=== PATIENT | female | born 1945 | race Caucasian/White ===

== ENCOUNTER 2017-02-22 18:29 | Inpatient (IN) ==
[2017-02-22] MEDS ORDERED: ALBUTEROL/IPRATROPIUM 2.5mg-0.5mg/3ml NEB IPPB ONE ×2 (18:43→18:58)
[2017-02-22] MEDS: METHYLPREDNISOLONE SOD SUCC 125mg/2ml INJECTION IVP ONE ×2 (18:51→19:00)
--- NOTE | 2017-02-22 18:53 | Emergency Department Report ---
SOB HPI - General Chief Complaint: Shortness of Breath/Dyspnea Stated Complaint: Trouble breathing Time Seen by Provider: 02/22/17 18:40 Source: patient, family Mode of arrival: ambulatory Limitations: no limitations - History of Present Illness Patient has a long-standing history of COPD, and began having exacerbation of her difficulty breathing several days ago. Patient is from [place], saw her doctor on , and was started on a prednisone taper pack, starting at 50 mg to be tapered over one week. Patient also was started on Cefdinir. At home the patient uses primarily albuterol nebulized and MDI form, and has her medications with her. Today the patient's symptoms became worse as she was exposed to the heat, humidity, and allergens. Patient has not been running any fevers, and this is not unusual for her COPD. MD Complaint: shortness of breath, cough Exacerbating factors: exertion Known history of: COPD Associated symptoms: denies other symptoms - Related Data Home Medications Medication Instructions Recorded Confirmed Amlodipine Besylate [Norvasc] 5 mg PO DAILY 02/22/17 02/22/17 Atorvastatin 1 tab PO HS 02/22/17 02/22/17 Calcium 600 + D [Caltrate + D] 1 tab PO DAILY 02/22/17 02/22/17 Cefdinir 300 mg PO DAILY 02/22/17 02/22/17 Cholecalciferol (Vitamin D3) 1,000 unit PO DAILY 02/22/17 02/22/17 [Vitamin D3] Formoterol Fumarate [Perforomist] 20 mcg IH DAILY 02/22/17 02/22/17 Levothyroxine 1 tab PO DAILY 02/22/17 02/22/17 Omeprazole 40 mg PO DAILY 02/22/17 02/22/17 predniSONE [Prednisone] 10 mg PO TAPERQD 02/22/17 02/22/17 Allergies Allergy/AdvReac Type Severity Reaction Status Date / Time codeine Allergy Unknown Nausea and Verified 02/22/17 18:43 Vomiting Penicillins Allergy Unknown Verified 02/22/17 18:43 Review of Systems All systems: reviewed and negative except as stated PFSH Patient Stated Medical History Transient Ischemic Attacks ( Yes TIA) Cataracts Yes Other HEENT Yes: WEARS GLASSES Angina Yes Coronary Artery Disease Yes Hypertension Yes Myocardial Infarction Yes Bronchitis Yes Chronic Obstructive Pulmonary Yes Disease (COPD) Gastroesophageal Reflux Yes Disease COPD CAD - Social History Smoking status: Never smoker Physical Exam - Limitations Limitations: no limitations - General General appearance: alert (patient appears in moderate respiratory distress) - Normal Exams: Head:: Normocephalic without trauma Eyes:: Pupils are PERRLA w/ EOMI, No scleral icterus, irritation, or foreign bodies noted ENMT:: No facial trauma, nasal exudates, pharyngeal erythema, or exudates are noted Neck:: Full range of motion, without adenopathy, JVD, bruits or thyromegaly Cardiovascular:: Regular rate and rhythm, without murmur or gallop, Pulses 2+ all extremities, capillary refill, <2 seconds all extremities Abdomen:: Bowel sounds positive, soft, non-tender, non-distended, no hepatosplenomegaly, masses or bruits noted Lymphatic:: No lymphadenopathy, or lymphedema noted Musculoskeletal:: No tenderness, or deformity noted, good range of motion, all extremities Integumentary:: No rashes, hives, or bruising noted, hair and nails, without abnormality Neurological:: Patient is alert, and oriented, cranial nerves, motor/sensory/ cerebellar, exams w/o gross deficits, to observation Psychiatric:: Patient exhibits, appropriate attention, emotion and affect - Chest Chest inspection: Present: normal inspection, symmetric chest wall rise - Respiratory Respiratory exam: Present: respiratory distress (bilateral tight wheezes, with poor air movement), wheezes, accessory muscle use, prolonged expiratory phase. Absent: normal lung sounds bilaterally Course Vital Signs Temperature 98.3 F 02/22/17 18:35 Pulse Rate 117 H 02/22/17 18:35 Respiratory Rate 26 H 02/22/17 18:35 Blood Pressure 141/84 H 02/22/17 18:35 Pulse Oximetry 93 02/22/17 18:35 Temperature 98.3 F 02/22/17 18:35 Pulse Rate 126 H 02/22/17 20:15 Respiratory Rate 30 H 02/22/17 20:15 Blood Pressure 133/59 02/22/17 20:15 Pulse Oximetry 92 02/22/17 20:15 Shortness of Breath/Dyspnea - [facility] Narrative Medical decision making narrative: Patient given sign Medrol 125 mg IV, and 2 DuoNeb nebs [id number] - after initial treatments patient showed little improvement initially, became quite anxious, and was having worsening difficulty breathing. Patient given 5 mg Valium IV, 2 additional DuoNeb nebs by IPAP, and seem to improve. Pt also given 1lns bolus. Chest x-ray - chronic lung disease only CBC - n CMP - n ABG -ordered, however when results came back sample was obviously a venous sample. Due to discomfort in the first draw, patient declines further ABG at this time After a total of 6 treatments, and the above medications, patient is significantly improved, she was able to get off of BiPAP, but is unable to maintain her O2 saturation above 86% on room air. On 2-4 L nasal cannula the patient has good oxygenation and is feeling much better. When the patient got up to go to the bathroom however she became significantly winded with only a few steps. Case is discussed with Dr. Maury Lzao will admit the patient for COPD exacerbation - Lab Data Result diagrams: 02/22/17 19:19 02/22/17 19:19 Lab Results 02/22/17 02/22/17 02/22/17 Range/Units 19:19 19:19 19:55 WBC 11.1 H (4.5-11.0) T/MM3 RBC 4.15 (4.00-5.20) M/MM3 Hgb 12.2 (12-16) GM/DL Hct 37.4 (36-46) % MCV 90.1 (80-100) UM3 MCH 29.4 (26-34) UUG MCHC 32.6 (31-37) GM/DL RDW Std Deviation 40.8 (36.9-50.2) FL Plt Count 370 (130-400) T/MM3 MPV 8.9 L (9.4-12.4) UM3 Immature Gran % (Auto) 0.2 (0.0-0.5) % Neut % (Auto) 52.9 (33-66) % Lymph % (Auto) 33.0 (23-45) % Hudspeth % (Auto) 13.4 H (0-9.0) % Eos % (Auto) 0.4 (0-4) % Baso % (Auto) 0.1 (0-2) % Neut # 5.9 (1.8-7.7) T/MM3 Lymph # 3.7 (1-4.8) T/MM3 Hudspeth # 1.5 H (0-0.8) T/MM3 Eos # 0.0 (0-0.5) T/MM3 Baso # 0.0 (0-0.2) T/MM3 Abs Immat Gran (auto) 0.02 (0.00-0.03) T/MM3 Specimen Type Cancelled Puncture Site Cancelled ABG pH Cancelled ABG pCO2 Cancelled ABG pO2 Cancelled ABG HCO3 Cancelled ABG Total CO2 Cancelled ABG O2 Saturation Cancelled ABG Base Excess Cancelled Jass Test Cancelled VBG pH (7.31-7.41) VBG pCO2 (40-52) MMHG VBG pO2 (40-52) MMHG VBG HCO3 (22-26) MEQ/L VBG Total CO2 MEQ/L VBG O2 Saturation % VBG Base Excess (-2.0-2.0) MMOL/L O2 Delivery Method Cancelled Vent Rate Cancelled FiO2 % Cancelled FiO2 (liters per min) Cancelled PEEP Cancelled Inspiratory Pressure Cancelled Pressure Support Cancelled Turbidity < 20 (0-20) Sodium 140 (134-144) MEQ/L Potassium 3.6 (3.6-5) MEQ/L Chloride 100 (98-107) MEQ/L Carbon Dioxide 29 (22-30) MEQ/L Anion Gap 11 (5-15) MEQ/L BUN 15.0 (7-17) MG/DL Creatinine 0.9 (0.7-1.2) MG/DL GFR Calculation 62 BUN/Creatinine Ratio 17 (6-26) RATIO Glucose 105 (65-110) MG/DL Calculated Osmolality 270 (261-280) MOSM/KG Calcium 9.7 (8.4-10.2) MG/DL Total Bilirubin 0.40 (0.20-1.30) MG/DL Conjugated Bilirubin 0.00 (0.00-0.30) MG/DL Unconjugated Bilirubin 0.20 (0.00-11.10) MG/DL Icterus Index < 2 (0-7) AST 27 (14-36) U/L ALT 41 (9-52) U/L Alkaline Phosphatase 114 (38-126) U/L Total Protein 6.7 (6.3-8.2) G/DL Albumin 4.2 (3.5-5.0) G/DL Globulin 2.5 (2.4-3.6) G/DL Albumin/Globulin Ratio 1.7 (1.1-2.2) RATIO Specimen Hemolysis < 15 (0-25) // Range/Units 19:55 WBC (4.5-11.0) T/MM3 RBC (4.00-5.20) M/MM3 Hgb (12-16) GM/DL Hct (36-46) % MCV (80-100) UM3 MCH (26-34) UUG MCHC (31-37) GM/DL RDW Std Deviation (36.9-50.2) FL Plt Count (130-400) T/MM3 MPV (9.4-12.4) UM3 Immature Gran % (Auto) (0.0-0.5) % Neut % (Auto) (33-66) % Lymph % (Auto) (23-45) % [place]ud[place] % (Auto) (0-9.0) % Eos % (Auto) (0-4) % Baso % (Auto) (0-2) % Neut # (1.8-7.7) T/MM3 Lymph # (1-4.8) T/MM3 Hudspeth # (0-0.8) T/MM3 Eos # (0-0.5) T/MM3 Baso # (0-0.2) T/MM3 Abs Immat Gran (auto) (0.00-0.03) T/MM3 Specimen Type Puncture Site ABG pH ABG pCO2 ABG pO2 ABG HCO3 ABG Total CO2 ABG O2 Saturation ABG Base Excess Jass Test VBG pH 7.440 H (7.31-7.41) VBG pCO2 49 (40-52) MMHG VBG pO2 32 L (40-52) MMHG VBG HCO3 33 H (22-26) MEQ/L VBG Total CO2 34.8 MEQ/L VBG O2 Saturation 65.0 % VBG Base Excess 7.9 H (-2.0-2.0) MMOL/L O2 Delivery Method Bpap, % Vent Rate FiO2 % 21 FiO2 (liters per min) PEEP Inspiratory Pressure Pressure Support Turbidity (0-20) Sodium (134-144) MEQ/L Potassium (3.6-5) MEQ/L Chloride (98-107) MEQ/L Carbon Dioxide (22-30) MEQ/L Anion Gap (5-15) MEQ/L BUN (7-17) MG/DL Creatinine (0.7-1.2) MG/DL GFR Calculation BUN/Creatinine Ratio (6-26) RATIO Glucose (65-110) MG/DL Calculated Osmolality (261-280) MOSM/KG Calcium (8.4-10.2) MG/DL Total Bilirubin (0.20-1.30) MG/DL Conjugated Bilirubin (0.00-0.30) MG/DL Unconjugated Bilirubin (0.00-11.10) MG/DL Icterus Index (0-7) AST (14-36) U/L ALT (9-52) U/L Alkaline Phosphatase (38-126) U/L Total Protein (6.3-8.2) G/DL Albumin (3.5-5.0) G/DL Globulin (2.4-3.6) G/DL Albumin/Globulin Ratio (1.1-2.2) RATIO Specimen Hemolysis (0-25) Critical Care Time Critical Care Time: Yes Total Critical Care Time: 45 Attestation: Patient required aggressive respiratory treatment for hypoxemia and severe respiratory distress Disposition Clinical Impression: COPD exacerbation Dis[place]: 02 [place] [facility] Condition: Improved Prescriptions: Continue Cefdinir 300 mg PO DAILY Omeprazole 40 mg PO DAILY Amlodipine Besylate [Norvasc] 5 mg PO DAILY Levothyroxine 1 tab PO DAILY Atorvastatin 1 tab PO HS Calcium 600 + D [Caltrate + D] 1 tab PO DAILY predniSONE [Prednisone] 10 mg PO TAPERQD Cholecalciferol (Vitamin D3) [Vitamin D3] 1,000 unit PO DAILY Formoterol Fumarate [Perforomist] 20 mcg IH DAILY - Seen By: physician
[2017-02-22] MEDS ORDERED: ALBUTEROL 2.5mg/3ml (0.083%) NEB AEROSOL ONE (19:34)
[2017-02-22] MEDS ORDERED: NS 1,000 ML IV ONE (19:59)
[2017-02-22] MEDS ORDERED: NS FLUSH BAG 500ml IV PRN (23:03)
[2017-02-22] MEDS: ALBUTEROL 2.5mg/3ml (0.083%) NEB AEROSOL PRN (23:45)
[2017-02-23] MEDS: METHYLPREDNISOLONE SOD SUCC 125mg/2ml INJECTION IVP SCH ×5 (01:00→20:56)
[2017-02-23] MEDS: ALBUTEROL/IPRATROPIUM 2.5mg-0.5mg/3ml NEB AEROSOL PRN ×3 (02:34→15:09)
--- NOTE | 2017-02-23 04:51 | History & Physical Report ---
<Maury Lazo Karely - Last Filed: 02/23/17 04:47> History of Present Illness Date: 02/23/17 Chief complaint: short of breath HPI: This is a very nice 71 y/o female visiting her mother in law and is from [place]. The pateint has a history of copd and saw her PCP prior to leaving with a mild exacerbaton of her copd. The pateint is currently finishing a round of steroids and antibiotics. In [place] the pateint now with remarkable worsening breathing and occasional productive cough. In the ED the patient workup was against acute hypercapneic resp failure and cxr did not demonstrate pneumonia but the pateint did have impressive wheezing that did not respond to inhaled therapy. The pateint is to be admitted for further assessment of her lung diseaswe. Review of Systems Review of systems: no headache, no change in vision, no ear pain, no fever, chills or sweats, no neck or jaw pain, no chest pain, sig short of breath with cough productive of yellow sptuum, no abdomen pain,no nausea or vomiting, no change in bm, no edema and no focal neuro complaints. a [id number] point ROS otherwise neg except for outlined above. PFSH Patient Stated Medical History Transient Ischemic Attacks ( Yes TIA) Cataracts Yes Other HEENT Yes: WEARS GLASSES Angina Yes Coronary Artery Disease Yes Hypertension Yes Myocardial Infarction Yes: MILD 2015 Bronchitis Yes Chronic Obstructive Pulmonary Yes Disease (COPD) Gastroesophageal Reflux Yes Disease Other GI Yes: SMALL BOWEL OBSTRUCTION Surgical History: conol resection, adhesionlysis, NERI tonsil and adnoidectomy - Social History Smoking status: Former smoker Medications Home Medications Medication Instructions Recorded Confirmed Type Amlodipine Besylate [Norvasc] 5 mg PO DAILY 02/22/17 02/22/17 History Atorvastatin 1 tab PO HS 02/22/17 02/22/17 History Calcium 600 + D [Caltrate + D] 1 tab PO DAILY 02/22/17 02/22/17 History Cefdinir 300 mg PO DAILY 02/22/17 02/22/17 History Cholecalciferol (Vitamin D3) 1,000 unit PO DAILY 02/22/17 02/22/17 History [Vitamin D3] Formoterol Fumarate [Perforomist] 20 mcg IH DAILY 02/22/17 02/22/17 History Levothyroxine 1 tab PO DAILY 02/22/17 02/22/17 History Omeprazole 40 mg PO DAILY 02/22/17 02/22/17 History predniSONE [Prednisone] 10 mg PO TAPERQD 02/22/17 02/22/17 History Allergies Allergy/AdvReac Type Severity Reaction Status Date / Time codeine Allergy Unknown Nausea and Verified 02/22/17 22:25 Vomiting Penicillins Allergy Unknown Verified 02/22/17 22:25 Exam Vital Signs: Temperature 95.7 F L 02/23/17 00:29 Pulse Rate 117 H 02/23/17 00:29 Respiratory Rate 18 02/23/17 02:30 Blood Pressure 124/61 02/23/17 00:29 Pulse Oximetry 94 02/23/17 02:30 Oxygen Delivery Method Nasal Cannula Oxygen Flow Rate 1 Telemetry Rhythm: Sinus Rhythm Height: 1.6 m Weight: 68.8 kg - Constitutional Present: moderate distress, well nourished, well developed, average body habitus , cooperative - Routine HEENT Exam Head: Present: normocephalic, atraumatic Eye: Present: EOMI, conjunctivae pink ENT: Present: mucous membranes moist - Routine Neck Exam Present: supple, full ROM - Routine Respiratory Exam Present: accessory muscle use, dyspnea, prolonged expiratory phase, respiratory distress, wheezes, distant breath sounds, diminished air movement - Routine Cardiovascular Exam Present: RRR, no murmur - Routine Abdominal Exam Present: soft, non distended, non tender - Routine Extremities Exam Present: no edema, full ROM - Routine Neurological Exam Present: alert, oriented X3, CN II-XII intact. Absent: motor deficit - Routine Psychiatric Exam Present: normal affect Results - Labs CBC & Chem 7: 02/22/17 19:19 02/22/17 19:19 - Imaging and Cardiology Chest x-ray Additional comments: no acute disease process Assessment and Plan (1) COPD exacerbation Current visit: Yes Status: Acute 02/23/17 04:54 this pateint has persistent insp and exp wheezes, fortunately cxr is reasuring, abg no resp failure, oxygen only mildly increased and not c/w hypoxic resp failure. iv solumedrol, albuterol prn, duoneb scheduled, reasess (2) Bronchitis Current visit: Yes Status: Acute 02/23/17 04:55 pateint with intermittent productive sputum. on oral cephalsporin. will treat with zithromax and followsx. cxr is rasuring but could be early pneumonia. (3) GERD (gastroesophageal reflux disease) Current visit: Yes Status: Acute 02/23/17 04:56 will continue with Iv ppi. with steroids increased risk of gastritis. (4) Hypertension Current visit: Yes Status: Acute 02/23/17 04:56 continue home antihypertensive meds once med rec is known. adjust as indicated (5) Hypothyroid Current visit: Yes Status: Acute 02/23/17 04:57 continue synthroid supplimentation DVT Prophylaxis: SCD's GI Prophylaxis: Protonix Resuscitation Status: Do Not Intubate Sepsis Assessment - Evaluation Sepsis screening result: No Definite Risk Hospital Course Summary Disclaimer: The visit summary below is not to be considered part of the above Progress Note. <Coco Mckenzie - Last Filed: 02/23/17 13:31> History of Present Illness Date: 02/23/17 [facility] Patient Stated Medical History Transient Ischemic Attacks ( Yes TIA) Cataracts Yes Other HEENT Yes: WEARS GLASSES Angina Yes Coronary Artery Disease Yes Hypertension Yes Myocardial Infarction Yes: MILD 2015 Bronchitis Yes Chronic Obstructive Pulmonary Yes Disease (COPD) Gastroesophageal Reflux Yes Disease Other GI Yes: SMALL BOWEL OBSTRUCTION Exam Vital Signs: Temperature 96.1 F L 02/23/17 07:42 Pulse Rate 124 H 02/23/17 07:42 Respiratory Rate 16 02/23/17 11:02 Blood Pressure 134/61 02/23/17 07:42 Pulse Oximetry 90 02/23/17 11:02 Oxygen Delivery Method Room Air Oxygen Flow Rate 1 Height: 5 ft 3 in Weight: 154 lb 1.65 oz Results - Labs CBC & Chem 7: 02/23/17 04:17 02/23/17 04:17 Assessment and Plan (1) COPD exacerbation Current visit: Yes Status: Acute (2) Bronchitis Current visit: Yes Status: Acute (3) GERD (gastroesophageal reflux disease) Current visit: Yes Status: Acute (4) Hypertension Current visit: Yes Status: Acute (5) Hypothyroid Current visit: Yes Status: Acute Assessment and Plan: Patient was seen by me at 10:30 AM. Informant is patient, patient's , patient's current records. Chief complaint:"I just flat out could not breathe.Can't believe I made it from the car, my nails probably were blue." History of present illness: The patient is a 71-year-old white female who resides in [place], [place], who is here visiting her myixnd-nw-dlp, and other family members. She has a history of COPD and recently had a COPD flare which was treated with prednisone and cefdenir. She believes she stopped those medications on Thursday or Thursday of last week. She reports that she felt fine all of last week until she woke up Thursday morning after coughing all night long. She felt like she was developing bronchitis and went to urgent care to see a practitioner has seen her before. At that time she was started on prednisone 50 mg by mouth daily with a taper and Cedinir. She reports at that time she was told that her lungs were "okay". Subsequently got in the car from [place] and drove to [place]. The car ride she felt great however she arrived in [place] at 4:30 on Thursday at which time the outside temperature was 107. The patient subsequently became short of air and this continued to the point that she could walk down the stairs okay but she is really struggling to breathe going up the stairs. She used her pro-air inhaler multiple times without relief. I'm sending she went to denominational but during the day she continued to remain short of air and by last evening she felt like she couldn't move air at all and was brought to the emergency department where she was struggling to breathe and was placed on BiPAP, she underwent multiple breathing treatments and aggressive therapy as well as IV steroids to stabilize her. She also required Valium for anxiety due to her air hunger. She denies any fevers, chills , or sweats, she has had an occasional cough which has been nonproductive (at home she was coughing up thick white sputum prior to starting the prednisone), she has had a runny nose in addition. She feels like she has been unable to move air she has had no chest pain and no palpitations she has not noticed any swelling in her legs. She is not on oxygen at home. 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 Cataracts AR in 2015 Heart catheter in 2001 which showed "slight blockage" Hypertension COPD Gastroesophageal reflux History of small bowel obstruction in 2011 Hypothyroid Past surgical history: Tonsillectomy D&C times multiple events Hysterectomy at age of 33 after childbirth secondary to hemorrhaging one ovary was left Age 38 she had removal of the second ovary and perhaps an appendectomy Colon cancer in 2008 status post right hemicolectomy Allergies: Codeine is actually an adverse reaction causes nausea and vomiting Penicillin-hives and peeling of the skin from the hands Personal history: The patient lives in [place], [place] with her . She still has family here in the area. 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 Her hobbies include scrapbooking. They have 2 dogs at home. Tobacco: She quit smoking 16 years ago prior to that she smoked 1-1/2 packs per day since the age of 13 (42 yrs x1 1/2 ppd) EtOH: None Immunizations: She gets a yearly flu shot. She believes she has had to perhaps 3 pneumococcal vaccine, one was given before the age of 64. She is not sure if she's had the 13 Valent and the 23 Valent. She does not know if she's had Tdap and has not had the shingles vaccine. Family history: Her father age 72 of lung cancer. Her mother at the age of 82 from emphysema and was a long-standing smoker. A brother of liver cancer. One aunt of colon cancer. There is also family history of diabetes and heart disease. Review of systems: The patient denies fevers chills or sweats.she reports her weight can fluctuate by 1-2 pounds usually due to fluid. HEENT: She has headaches every time she takes prednisone they're generally frontal headaches, occasionally throbbing, no sinus problems, no sinus drainage , she does report a runny nose, no visual changes, her vision is corrected with glasses, no blurred vision, no double vision, no dry eyes, no sore throat, she has sores in the mouth since admission that she attributes to the multiple inhalers, she says this occurs every time. No dental problems. Lungs: See history of present illness CV: No chest pain,no palpitations, no swelling of the extremities GI: No nausea, no vomiting, no diarrhea, she has not had a bowel movement since she arrived in [place] on Thursday.,No blood in the stool, no dark-colored stools, no bright red blood per rectum. : No dysuria, no hematuria, no flank pain. He does report she has problems voiding especially in the morning and needs to get up and go several times before she feels like she is emptied her bladder but has no symptoms of pain. Musculoskeletal: No numbness or tingling in the arms or legs, no weakness symptoms associated with her TIA which causes her left side to be slightly weak. Skin: No skin rash Physical exam: Selected Entries 02/22/17 18:35 02/22/17 18:45 02/22/17 19:00 Temperature 98.3 F Pulse Rate 117 H Respiratory Rate 51 H Blood Pressure 141/84 H 182/100 H Pulse Oximetry 93 91 Oxygen Flow Rate 02/22/17 19:15 02/22/17 19:30 02/22/17 20:30 Temperature Pulse Rate Respiratory Rate 48 H Blood Pressure Pulse Oximetry 85 L 62 L Oxygen Flow Rate 1 02/22/17 21:57 02/23/17 00:29 02/23/17 07:42 Temperature 96.6 F L 95.7 F L 96.1 F L Pulse Rate 124 H Respiratory Rate Blood Pressure 134/61 Pulse Oximetry Oxygen Flow Rate 1 02/23/17 10:14 02/23/17 11:02 Temperature Pulse Rate Respiratory Rate 16 Blood Pressure Pulse Oximetry 93 90 Oxygen Flow Rate In genera,l the patient is alert and oriented, cooperative with exam in no respiratory distress while resting in bed. HEENT: Head is atraumatic and normocephalic. Extraocular movements are intact. There is no conjunctival petechiae or scleral icterus. No sinus tenderness. Oral mucosa is moist and pink with out exudate or lesions. Neck is supple without adenopathy. Lungs: Decreased air movement with occasional wheeze, no rhonchi, no crackles. CV: Tachycardic without murmur Abdomen: Bowel sounds are present. There is no guarding, no rebound, no hepatosplenomegaly. Extremities: Has no clubbing,no cyanosis, no edema. Musculoskeletal: Moves all 4 extremities without difficulty Skin: Is warm and dry without evidence of rash or ecchymoses Laboratory Tests 02/22/17 02/23/17 02/23/17 19:19 04:17 04:17 WBC 11.1 H 5.9 D Plt Count 370 311 Sodium 138 Potassium 3.6 Chloride 103 Carbon Dioxide 23 Anion Gap 12 BUN 14.0 Creatinine 0.7 D Glucose 188 H Calcium 8.6 D AST 26 ALT 36 Alkaline Phosphatase 88 Total Protein 5.8 L Albumin 3.5 Globulin 2.3 L Her chest x-ray was examined by me 02/22/17 Findings: A single frontal chest radiograph demonstrates no evidence of pneumonic infiltrate of airspace nature. There does appear to be some subtle reticular/interstitial markings in the bases, chronicity indeterminant. Slight pulmonary hyperaeration likely reflecting an element of COPD. Heart unenlarged. No pleural fluid. Pulmonary vasculature normal. Slight rightward rotation of the chest and curvature of the spine but allowing for this no volume loss. Monitor leads overlie the chest. Bony elements intact. Impression: No definitive acute chest disease; mild bibasal interstitial prominence, chronicity indeterminate. Assessment: Acute respiratory insufficiency requiring BiPAP Acute COPD exacerbation secondary to heat exposure Recent treatment for bronchitis using cefdinir Hypertension Hypothyroid History of colon cancer status post hemicolectomy Hyperlipidemia Gastroesophageal reflux disease Plan: We'll continue IV Solu-Medrol Will start on Pulmicort inhaler We'll start Mucinex Will start Acapella treatments as well 4 times a day At this time I think there is no need for further antibiotic therapy Have asked the patient and her to obtain an accurate list of her home medications We'll check a venous Doppler of her legs to rule out DVT Will continue PPI to decrease risk of gastritis while on steroids Continue Lovenox for DVT prophylaxis We'll recheck CBC and BMP in the morning - Time spent with patient greater than 35 minutes Hospital Course Summary Disclaimer: The visit summary below is not to be considered part of the above Progress Note.
[2017-02-23] MEDS: ALBUTEROL 2.5mg/3ml (0.083%) NEB AEROSOL PRN ×3 (05:09→23:07)
--- NOTE | 2017-02-23 07:55 | XRay Report ---
Indication: severe dyspnea PROCEDURE: XR chest 1V: Encounter: Initial Comparison: None Findings: A single frontal chest radiograph demonstrates no evidence of pneumonic infiltrate of airspace nature. There does appear to be some subtle reticular/interstitial markings in the bases, chronicity indeterminant. Slight pulmonary hyperaeration likely reflecting an element of COPD. Heart unenlarged. No pleural fluid. Pulmonary vasculature normal. Slight rightward rotation of the chest and curvature of the spine but allowing for this no volume loss. Monitor leads overlie the chest. Bony elements intact. Impression: No definitive acute chest disease; mild bibasal interstitial prominence, chronicity indeterminate. .
[2017-02-23] MEDS: AMLODIPINE 5 MG TABLET PO SCH (08:41)
[2017-02-23] MEDS: ENOXAPARIN 40 MG/0.4 ML INJECTION SQ SCH (08:41)
[2017-02-23] MEDS ORDERED: LEVOFLOXACIN PB 500 MG/100 ML BAG IV SCH ×2 (09:00→22:00)
[2017-02-23] MEDS ORDERED: ONDANSETRON 4 MG/2 ML INJECTION IVP PRN (10:14)
[2017-02-23] MEDS ORDERED: BISACODYL 10 MG SUPPOSITORY RECTALLY PRN (10:15)
[2017-02-23] MEDS: BUDESONIDE INH.SOLN 0.5mg/2ml NEB AEROSOL SCH ×2 (11:01→18:50)
[2017-02-23] MEDS: OMEPRAZOLE 20 MG CAPSULE PO SCH (14:10)
[2017-02-23] MEDS: GUAIFENESIN/D-METHORPHAN 600mg/30mg TABLET PO SCH ×2 (14:18→20:56)
--- NOTE | 2017-02-23 15:06 | Ultrasound Report ---
Indication: ro dvt PROCEDURE: US venous doppler LE BI: Encounter: Initial Comparison: None Technique: Duplex interrogation of the deep venous system of the lower external radius was performed bilaterally with grayscale and color flow imaging as well. Findings: There is normal compressibility, augmentation, phasic flow bilaterally. No grayscale or color flow imaging evidence of thrombus. Impression: Negative for deep venous thrombosis bilaterally. .
[2017-02-23] MEDS: SALINE FLUSH 10ml SYRINGE IV PRN ×2 (15:36→22:00)
[2017-02-23] MEDS: ALBUTEROL/IPRATROPIUM 2.5mg-0.5mg/3ml NEB IH SCH (18:40)
[2017-02-23] MEDS: ACETAMINOPHEN 325 MG TABLET PO PRN (18:47)
[2017-02-24] MEDS: METHYLPREDNISOLONE SOD SUCC 125mg/2ml INJECTION IVP SCH ×3 (02:59→17:40)
[2017-02-24] MEDS: ALBUTEROL 2.5mg/3ml (0.083%) NEB AEROSOL PRN (04:41)
[2017-02-24] MEDS: ACETAMINOPHEN 325 MG TABLET PO PRN (04:49)
[2017-02-24] MEDS: OMEPRAZOLE 20 MG CAPSULE PO SCH (06:01)
[2017-02-24] MEDS: ALBUTEROL/IPRATROPIUM 2.5mg-0.5mg/3ml NEB IH SCH ×4 (07:34→19:48)
[2017-02-24] MEDS: BUDESONIDE INH.SOLN 0.5mg/2ml NEB AEROSOL SCH ×2 (07:34→19:49)
[2017-02-24] MEDS: ENOXAPARIN 40 MG/0.4 ML INJECTION SQ SCH (08:15)
[2017-02-24] MEDS: GUAIFENESIN/D-METHORPHAN 600mg/30mg TABLET PO SCH ×2 (08:15→20:48)
[2017-02-24] MEDS: AMLODIPINE 5 MG TABLET PO SCH (08:15)
--- NOTE | 2017-02-24 09:18 | Progress Note ---
<Phuong Daugherty - Last Filed: 02/24/17 09:14> Subjective: Bhavana reports that she is feeling much better. She feels like her breathing is almost back to baseline. She was able to get up and use the bathroom this morning without getting short of breath. She states that she always has a little bit of wheezing, even at baseline. She reports that in the middle of the night, she coughed up a mucous plug, and since then she has felt significantly better. She denies any fevers or chills. She denies any chest pain. Her cough is improving. She denies any abdominal pain or nausea. She denies constipation, though states that she has not been eating as much and has typical lately. She does not use oxygen at home. She is hopeful for discharge soon. She also states that she feels like she is starting to develop thrush and the roof of her mouth. Objective Vital signs: Temperature 96.1 F L 02/24/17 08:08 Pulse Rate 112 H 02/24/17 08:08 Respiratory Rate 20 02/24/17 08:08 Blood Pressure 134/68 02/24/17 08:08 Pulse Oximetry 91 02/24/17 08:08 Oxygen Delivery Method Room Air Oxygen Flow Rate 1 Rhythm: Sinus Tachycardia Cardiac Ectopy: Occasional PVC's Weight: 70.1 kg - Constitutional Present: no acute distress, well nourished, well developed - Routine HEENT Exam ENT: Absent: oropharynx clear (mild amount of thrush noted on tongue. Dentures are in place.) - Routine Respiratory Exam Present: wheezes, diminished air movement - Routine Cardiovascular Exam Present: RRR, S1, S2 - Routine Abdominal Exam Present: soft, normoactive bowel sounds, non distended, non tender - Routine Extremities Exam Present: no edema, pulses intact, normal capillary refill - Routine Musculoskeletal Exam Musculoskeletal: Present: no clubbing or cyanosis - Routine Skin Exam Present: intact, dry, warm - Routine Neurological Exam Present: alert, oriented X3 Mild tremors, patient notes that they become worse after albuterol treatment - Routine Psychiatric Exam Present: normal affect, normal thought process Results - Labs CBC & Chem 7: 02/24/17 04:28 02/24/17 04:28 Assessment and Plan (1) Sinus tachycardia Current visit: Yes Status: Acute (2) Hypokalemia Current visit: Yes Status: Acute (3) COPD exacerbation Current visit: Yes Status: Acute 02/23/17 04:54 this pateint has persistent insp and exp wheezes, fortunately cxr is reasuring, abg no resp failure, oxygen only mildly increased and not c/w hypoxic resp failure. iv solumedrol, albuterol prn, duoneb scheduled, reasess (4) Bronchitis Current visit: Yes Status: Chronic 02/23/17 04:55 pateint with intermittent productive sputum. on oral cephalsporin. will treat with zithromax and followsx. cxr is rasuring but could be early pneumonia. (5) GERD (gastroesophageal reflux disease) Current visit: Yes Status: Chronic 02/23/17 04:56 will continue with Iv ppi. with steroids increased risk of gastritis. (6) Hypertension Current visit: Yes Status: Chronic 02/23/17 04:56 continue home antihypertensive meds once med rec is known. adjust as indicated (7) Hypothyroid Current visit: Yes Status: Chronic 02/23/17 04:57 continue synthroid supplimentation (8) Thrush Current visit: Yes Status: Acute DVT Prophylaxis: Lovenox GI Prophylaxis: other (Prilosec) Resuscitation Status: Do Not Resuscitate Assessment and Plan: COPD exac with hypoxia -Begin tapering steroid dose - Solu-Medrol at 62.5 mg every 8 hours -Continue with nebulized treatments acapella -Obtain ambulatory oximetry and overnight oximetry. Patient had an episode of hypoxia overnight with saturation of 83% after coughing. -White count increased to 13,000, suspect steroid effect -Bilateral venous Dopplers were negative for DVT Thrush -Start nystatin 4 times a day Hypokalemia -Replace orally -Magnesium level was normal at 1.9 Sinus tachycardia with occasional PVC, per telemetry -Telemetry reviewed -Baseline rate is just over 100, but increases into the 120 range after breathing treatments Sepsis Assessment - Evaluation Sepsis screening result: No Definite Risk Hospital Course Summary Disclaimer: The visit summary below is not to be considered part of the above Progress Note. Hospital Course: Admission Assessment: Acute respiratory insufficiency requiring BiPAP Acute COPD exacerbation secondary to heat exposure Recent treatment for bronchitis using cefdinir Hypertension Hypothyroid History of colon cancer status post hemicolectomy Hyperlipidemia Gastroesophageal reflux disease Plan: We'll continue IV Solu-Medrol Will start on Pulmicort inhaler We'll start Mucinex Will start Acapella treatments as well 4 times a day At this time I think there is no need for further antibiotic therapy Have asked the patient and her to obtain an accurate list of her home medications We'll check a venous Doppler of her legs to rule out DVT Will continue PPI to decrease risk of gastritis while on steroids Continue Lovenox for DVT prophylaxis We'll recheck CBC and BMP in the morning 02/24/17 09:34 COPD exac with hypoxia -Begin tapering steroid dose - Solu-Medrol at 62.5 mg every 8 hours -Continue with nebulized treatments acapella -Obtain ambulatory oximetry and overnight oximetry. Patient had an episode of hypoxia overnight with saturation of 83% after coughing. -White count increased to 13,000, suspect steroid effect -Bilateral venous Dopplers were negative for DVT Thrush -Start nystatin 4 times a day Hypokalemia -Replace orally -Magnesium level was normal at 1.9 Sinus tachycardia with occasional PVC, per telemetry -Telemetry reviewed -Baseline rate is just over 100, but increases into the 120 range after breathing treatments <Matteo James - Last Filed: 02/24/17 16:37> Objective Vital signs: Temperature 96.8 F 02/24/17 15:48 Pulse Rate 106 H 02/24/17 15:48 Respiratory Rate 20 02/24/17 15:50 Blood Pressure 129/65 02/24/17 15:48 Pulse Oximetry 98 02/24/17 15:48 Oxygen Delivery Method Nasal Cannula Oxygen Flow Rate 2 Results - Labs CBC & Chem 7: 02/24/17 04:28 02/24/17 04:28 Microbiology Results: Microbiology 02/24/17 12:15 Sputum, Expectorated Gram Stain - Final 02/24/17 12:15 Sputum, Expectorated Sputum Culture - Preliminary Culture Initiated - Results Pending Assessment and Plan (1) COPD exacerbation Current visit: Yes Status: Acute (2) Bronchitis Current visit: Yes Status: Chronic (3) GERD (gastroesophageal reflux disease) Current visit: Yes Status: Chronic (4) Hypertension Current visit: Yes Status: Chronic (5) Hypothyroid Current visit: Yes Status: Chronic (6) Hypokalemia Current visit: Yes Status: Acute (7) Sinus tachycardia Current visit: Yes Status: Acute (8) Thrush Current visit: Yes Status: Acute Assessment and Plan: Have independently interviewed and examined pt. Chart reviewed. Case discussed with CM and my [employer]. Care plan developed with my supervision; agree with above. Feels like she is improving. Breathing easier-less SOA and congested. Was able to mobilize a large ball of sputum-really felt breathing improved afterwards. Not sore in chest from cough or breathing. No pain as she breaths. Appetite stable. No ab pain or nausea. Bowels moving. Does report mouth sore. Urinating well. No f/c. Moving more. Lungs: Decreased bilaterally. Bilateral end expiratory wheezes. Expiratory phase prolonged. Breathing comfortably on O2 without distress. CV: tachy, regular AB: soft nt/nd +BS Ext: trace edema MSE: awake alert appropriate Plan: Decrease solu-medrol. Continue neb treatments. Wean O2 as able. Encourage ambulation. Nystatin for thrush. Replace potassium. Continue with supportive care. Time spent with patient care 25 minutes. Hospital Course Summary Disclaimer: The visit summary below is not to be considered part of the above Progress Note.
[2017-02-24] MEDS: ACETAMINOPHEN 500 MG TABLET PO PRN ×3 (11:03→17:42)
[2017-02-24] MEDS: NYSTATIN 500,000 units/5 ml ORAL LIQUID PO SCH ×4 (11:04→20:48)
[2017-02-24] MEDS: SALINE FLUSH 10ml SYRINGE IV PRN (17:42)
[2017-02-25 00:27] VITALS: BP 135/71
[2017-02-25] MEDS: METHYLPREDNISOLONE SOD SUCC 125mg/2ml INJECTION IVP SCH ×2 (00:35→09:13)
[2017-02-25] MEDS: ACETAMINOPHEN 500 MG TABLET PO PRN ×2 (00:55→06:01)
[2017-02-25] MEDS: OMEPRAZOLE 20 MG CAPSULE PO SCH (05:46)
[2017-02-25 07:51] VITALS: TEMP 95.9
[2017-02-25] MEDS: ALBUTEROL/IPRATROPIUM 2.5mg-0.5mg/3ml NEB IH SCH ×2 (07:53→11:32)
[2017-02-25] MEDS: BUDESONIDE INH.SOLN 0.5mg/2ml NEB AEROSOL SCH (07:53)
[2017-02-25 08:12] VITALS: RESP 16
[2017-02-25] MEDS: NYSTATIN 500,000 units/5 ml ORAL LIQUID PO SCH ×2 (09:13→14:06)
[2017-02-25] MEDS: ENOXAPARIN 40 MG/0.4 ML INJECTION SQ SCH (09:13)
[2017-02-25] MEDS: AMLODIPINE 5 MG TABLET PO SCH (09:14)
[2017-02-25] MEDS: SALINE FLUSH 10ml SYRINGE IV PRN ×2 (09:14→10:47)
[2017-02-25] MEDS: GUAIFENESIN/D-METHORPHAN 600mg/30mg TABLET PO SCH (09:14)
[2017-02-25 10:32] VITALS: PULSE 109
[2017-02-25] MEDS ORDERED: KETOROLAC 15 MG/ML INJECTION IVP ONE (10:39)
[2017-02-25] MEDS: ACETAMINOPHEN 325 MG TABLET PO PRN (12:15)
[2017-02-25] MEDS ORDERED: PredniSONE 20 MG TABLET PO SCH (13:15)
--- NOTE | 2017-02-25 13:18 | Progress Note ---
Subjective: F/U: COPD with acute exacerbation, acuter respiratory insufficiency Doing much better today. Breathing feels at baseline-not slight amount of wheezing which is typical for her. Able to be up and ambulatory without needing O2. Knows to take thing slowly with activities and take rest breaks as needed. Less cough and congestion. No pain with breathing. Mouth less sore. Eating well. No ab pain. No f/c. feels ready for discharge to home. Objective Vital signs: Temperature 95.9 F L 02/25/17 07:48 Pulse Rate 109 H 02/25/17 10:32 Respiratory Rate 16 02/25/17 11:30 Blood Pressure 135/71 02/25/17 07:48 Pulse Oximetry 92 02/25/17 11:30 Oxygen Delivery Method Room Air Oxygen Flow Rate 0.5 Weight: 70 kg - Constitutional Present: well nourished, well developed, cooperative - Routine HEENT Exam Head: Present: normocephalic, atraumatic Eye: Present: EOMI, PERRL ENT: Present: mucous membranes moist - Routine Respiratory Exam Present: decreased breath sounds, prolonged expiratory phase, wheezes (Faint end expiratory wheezes bilaterally ). Absent: rales, respiratory distress, rhonchi, crackles - Routine Cardiovascular Exam Present: RRR, no murmur - Routine Abdominal Exam Present: soft, normoactive bowel sounds, non distended, non tender. Absent: rebound, guarding - Routine Extremities Exam Present: cyanosis, clubbing. Absent: edema - Routine Musculoskeletal Exam Musculoskeletal: Present: no clubbing or cyanosis, normal strength - Routine Skin Exam Present: intact, warm, normal turgor - Routine Neurological Exam Present: alert, oriented X3, CN II-XII intact, vision grossly intact, hearing grossly intact. Absent: motor deficit - Routine Psychiatric Exam Present: normal affect, normal thought process, good insight, good judgment, depressed. Absent: anxious, agitated Results - Labs CBC & Chem 7: 02/25/17 04:27 02/25/17 04:27 Microbiology Results: Microbiology 02/24/17 12:15 Sputum, Expectorated Gram Stain - Final 02/24/17 12:15 Sputum, Expectorated Sputum Culture - Preliminary Early growth Assessment and Plan (1) COPD exacerbation Current visit: Yes Status: Acute 02/23/17 04:54 this pateint has persistent insp and exp wheezes, fortunately cxr is reasuring, abg no resp failure, oxygen only mildly increased and not c/w hypoxic resp failure. iv solumedrol, albuterol prn, duoneb scheduled, reasess (2) Acute respiratory insufficiency Problem details: POA Current visit: Yes Status: Resolved (3) Bronchitis Current visit: Yes Status: Chronic 02/23/17 04:55 pateint with intermittent productive sputum. on oral cephalsporin. will treat with zithromax and followsx. cxr is rasuring but could be early pneumonia. (4) GERD (gastroesophageal reflux disease) Current visit: Yes Status: Chronic 02/23/17 04:56 will continue with Iv ppi. with steroids increased risk of gastritis. (5) Hypertension Current visit: Yes Status: Chronic 02/23/17 04:56 continue home antihypertensive meds once med rec is known. adjust as indicated (6) Hypothyroid Current visit: Yes Status: Chronic 02/23/17 04:57 continue synthroid supplimentation (7) Hypokalemia Problem details: Not POA Current visit: Yes Status: Resolved (8) Sinus tachycardia Current visit: Yes Status: Acute (9) Thrush Current visit: Yes Status: Acute DVT Prophylaxis: Lovenox GI Prophylaxis: other (Omperazole ) Resuscitation Status: Do Not Resuscitate Assessment and Plan: With patient's respiratory status significantly improved and her breathing at baseline, will d/c to home. Prednisone 40mg daily for 1 week-pt to see PCP when returns home and work on tapering. Not needing home O2 at this time. Possible nocturnal hypoxemia/MARGARET may be present. Recommend further evaluation when returns home. Continue Nystatin for thrush. Do not need further antibiotics. Continue acapella and Mucinex for mucolytic effect. Increase activities as able. Pt to F/U with her PCP (Dr Carolann Gomez) upon return to home. Pt has apt with her crm specialist (Dr Rosa) on 03/10 and will keep. See orders for details. Case discussed with CM. Time spent with patient care and discharge greater than 30 minutes. Sepsis Assessment - Evaluation Sepsis screening result: No Definite Risk Hospital Course Summary Disclaimer: The visit summary below is not to be considered part of the above Progress Note. Hospital Course: Admission Assessment: Acute respiratory insufficiency requiring BiPAP Acute COPD exacerbation secondary to heat exposure Recent treatment for bronchitis using cefdinir Hypertension Hypothyroid History of colon cancer status post hemicolectomy Hyperlipidemia Gastroesophageal reflux disease Plan: We'll continue IV Solu-Medrol 125mg IV q 6 hours. Will start on Pulmicort neb treatments. We'll start Mucinex DM BID to decrease cough and congestion. Will start Acapella treatments as well 4 times a day At this time I think there is no need for further antibiotic therapy Have asked the patient and her to obtain an accurate list of her home medications We'll check a venous Doppler of her legs to rule out DVT Will continue PPI to decrease risk of gastritis while on steroids Continue Lovenox for DVT prophylaxis We'll recheck CBC and BMP in the morning 02/24/17 COPD exac with hypoxia -Begin tapering steroid dose - Solu-Medrol at 62.5 mg every 8 hours -Continue with nebulized treatments acapella -Obtain ambulatory oximetry and overnight oximetry. Patient had an episode of hypoxia overnight with saturation of 83% after coughing. -White count increased to 13,000, suspect steroid effect -Bilateral venous Dopplers were negative for DVT Thrush -Start nystatin 4 times a day Hypokalemia -Replace orally -Magnesium level was normal at 1.9 Sinus tachycardia with occasional PVC, per telemetry -Telemetry reviewed -Baseline rate is just over 100, but increases into the 120 range after breathing treatments 02/25/17 With patient's respiratory status significantly improved and her breathing at baseline, will d/c to home. Prednisone 40mg daily for 1 week-pt to see PCP when returns home and work on tapering. Not needing home O2 at this time. Possible nocturnal hypoxemia/MARGARET may be present. Recommend further evaluation when returns home. Continue Nystatin for thrush. Do not need further antibiotics. Continue acapella and Mucinex for mucolytic effect. Increase activities as able. Pt to F/U with her PCP (Dr Carolann Gomez) upon return to home. Pt has apt with her crm specialist (Dr Rosa) on 03/10 and will keep. See orders for details.
--- NOTE | 2017-02-25 13:45 | Discharge Summary ---
Discharge Information Date of admission: 02/22/17 21:53 Anticipated date of discharge: 02/25/17 Attending Physician: Matteo James MD Primary care physician: Nita Jackson - Discharge Diagnosis (1) COPD exacerbation Status: Acute (2) Acute respiratory insufficiency Problem Details: POA Status: Resolved (3) Bronchitis Status: Chronic (4) GERD (gastroesophageal reflux disease) Status: Chronic (5) Hypertension Status: Chronic (6) Hypothyroid Status: Chronic (7) Hypokalemia Problem Details: Not POA Status: Resolved (8) Sinus tachycardia Status: Acute (9) Thrush Status: Acute - Laboratory Labs: Laboratory Tests (ADMIT) 02/22/17 19:19 Sodium 140 Potassium 3.6 Carbon Dioxide 29 BUN 15.0 Creatinine 0.9 Glucose 105 Total Bilirubin 0.40 AST 27 ALT 41 Laboratory Tests (ADMIT) 02/22/17 19:19 WBC 11.1 H Hgb 12.2 Hct 37.4 MCV 90.1 Plt Count 370 02/25/17 04:27 02/25/17 04:27 - Microbiology Microbiology 02/24/17 12:15 Sputum, Expectorated Gram Stain - Final 02/24/17 12:15 Sputum, Expectorated Sputum Culture - Preliminary Early growth - Radiology Radiology: Date of Exam: 02/22/17 PROCEDURE: XR chest 1V Comparison: None Findings: A single frontal chest radiograph demonstrates no evidence of pneumonic infiltrate of airspace nature. There does appear to be some subtle reticular/interstitial markings in the bases, chronicity indeterminant. Slight pulmonary hyperaeration likely reflecting an element of COPD. Heart unenlarged. No pleural fluid. Pulmonary vasculature normal. Slight rightward rotation of the chest and curvature of the spine but allowing for this no volume loss. Monitor leads overlie the chest. Bony elements intact. Impression: No definitive acute chest disease; mild bibasal interstitial prominence, chronicity indeterminate. Date of Exam: 02/23/17 PROCEDURE: US venous doppler LE BI Technique: Duplex interrogation of the deep venous system of the lower external radius was performed bilaterally with grayscale and color flow imaging as well. Findings: There is normal compressibility, augmentation, phasic flow bilaterally. No grayscale or color flow imaging evidence of thrombus. Impression: Negative for deep venous thrombosis bilaterally. History of Present Illness HPI: Chief complaint: "I just flat out could not breathe.Can't believe I made it from the car, my nails probably were blue." History of present illness: The patient is a 71-year-old white female who resides in [place], [place], who is here visiting her [id number], and other family members. She has a history of COPD and recently had a COPD flare which was treated with prednisone and cefdenir. She believes she stopped those medications on Thursday or Thursday of last week. She reports that she felt fine all of last week until she woke up Thursday morning after coughing all night long. She felt like she was developing bronchitis and went to urgent care to see a practitioner has seen her before. At that time she was started on prednisone 50 mg by mouth daily with a taper and Cedinir. She reports at that time she was told that her lungs were "okay". Subsequently got in the car from [place] and drove to [place]. The car ride she felt great however she arrived in [place] at 4:30 on Thursday at which time the outside temperature was 107. The patient subsequently became short of air and this continued to the point that she could walk down the stairs okay but she is really struggling to breathe going up the stairs. She used her pro-air inhaler multiple times without relief. I'm sending she went to [facility] but during the day she continued to remain short of air and by last evening she felt like she couldn't move air at all and was brought to the emergency department where she was struggling to breathe and was placed on BiPAP, she underwent multiple breathing treatments and aggressive therapy as well as IV steroids to stabilize her. She also required Valium for anxiety due to her air hunger. She denies any fevers, chills , or sweats, she has had an occasional cough which has been nonproductive (at home she was coughing up thick white sputum prior to starting the prednisone), she has had a runny nose in addition. She feels like she has been unable to move air she has had no chest pain and no palpitations she has not noticed any swelling in her legs. She is not on oxygen at home. For complete details of the H&P refer to that document. Objective Vital signs: Temperature 95.9 F L 02/25/17 07:48 Pulse Rate 109 H 02/25/17 10:32 Respiratory Rate 16 02/25/17 11:30 Blood Pressure 135/71 02/25/17 07:48 Pulse Oximetry 92 02/25/17 11:30 Oxygen Delivery Method Room Air Oxygen Flow Rate 0.5 Weight: 70 kg Hospital Course This is a general summary of the patient's hospital course. For more details refer to the complete medical record. Hospital course: Admission Assessment: Acute respiratory insufficiency requiring BiPAP Acute COPD exacerbation secondary to heat exposure Recent treatment for bronchitis using cefdinir Hypertension Hypothyroid History of colon cancer status post hemicolectomy Hyperlipidemia Gastroesophageal reflux disease Plan: We'll continue IV Solu-Medrol 125mg IV q 6 hours. Will start on Pulmicort neb treatments. We'll start Mucinex DM BID to decrease cough and congestion. Will start Acapella treatments as well 4 times a day At this time I think there is no need for further antibiotic therapy Have asked the patient and her to obtain an accurate list of her home medications We'll check a venous Doppler of her legs to rule out DVT Will continue PPI to decrease risk of gastritis while on steroids Continue Lovenox for DVT prophylaxis We'll recheck CBC and BMP in the morning 02/24/17 COPD exac with hypoxia -Begin tapering steroid dose - Solu-Medrol at 62.5 mg every 8 hours -Continue with nebulized treatments acapella -Obtain ambulatory oximetry and overnight oximetry. Patient had an episode of hypoxia overnight with saturation of 83% after coughing. -White count increased to 13,000, suspect steroid effect -Bilateral venous Dopplers were negative for DVT Thrush -Start nystatin 4 times a day Hypokalemia -Replace orally -Magnesium level was normal at 1.9 Sinus tachycardia with occasional PVC, per telemetry -Telemetry reviewed -Baseline rate is just over 100, but increases into the 120 range after breathing treatments 02/25/17 With patient's respiratory status significantly improved and her breathing at baseline, will d/c to home. Prednisone 40mg daily for 1 week-pt to see PCP when returns home and work on tapering. Not needing home O2 at this time. Possible nocturnal hypoxemia/MARGARET may be present. Recommend further evaluation when returns home. Continue Nystatin for thrush. Do not need further antibiotics. Continue acapella and Mucinex for mucolytic effect. Increase activities as able. Pt to F/U with her PCP (Dr Carolann Gomez) upon return to home. Pt has apt with her fishing reel assembler (Dr Rosa) on 03/10 and will keep. See orders for details. Time spent with patient: discharge greater than 30 minutes DVT Prophylaxis: Lovenox GI Prophylaxis: other (Omeprazole ) Discharge Plan - Med Rec/Dispo Referrals/Follow Up: Nita Jackson [Other] (Hospital follow up, see upon return home) [facility] Instructions: COPD (Chronic Obstructive Pulmonary Disease) (GEN) Prescriptions: [place]/Dm [Mucinex Dm] 1 tab PO BID #20 tab.er.12h Nystatin Oral Liq. [Mycostatin] 5 ml PO QID #240 ml PredniSONE [Deltasone] 40 mg PO WB #20 tablet Continue Omeprazole 40 mg PO DAILY Amlodipine Besylate [Norvasc] 5 mg PO DAILY Levothyroxine 1 tab PO DAILY Atorvastatin 1 tab PO HS Calcium 600 + D [Caltrate + D] 1 tab PO DAILY Cholecalciferol (Vitamin D3) [Vitamin D3] 1,000 unit PO DAILY Formoterol Fumarate [Perforomist] 20 mcg IH DAILY Discontinued Cefdinir 300 mg PO DAILY predniSONE [Prednisone] 10 mg PO [id number] Discharge Instructions/Outpatient Orders: Final Provider Discharge Instructions Location: Determined By Patient - Disposition 01 Discharged Home, Self-Care - Attestation Attestation Narrative: 02/25/17 14:03 I have interviewed and examined pt prior to discharge. See my progress note from today for details. Patient is medically stable for discharge to home.
[2017-02-25 16:17] VITALS: O2SAT 93
== END 2017-02-25 14:35 | disposition home or self-care (01) | DRG 191 ==
LOC: ED 18:29 → MED 21:30
PROVIDERS: ADMIT Emergency Medicine; ATTEND Hospitalist